=== PATIENT | female | born 1930 | race Asian ===

== ENCOUNTER 2018-11-27 10:30 | Inpatient (IN) | payer BC ==
[~2018-11-27] VITALS: Ht 175.3 cm; Wt 62.6 kg
[2018-11-27] MEDS ORDERED: IV NORMAL SALINE 500 ML BAG IV ONE (10:45)
--- NOTE | 2018-11-27 10:45 | NUR ---
No information about home medications provided by EMS, pt unable to provide information.
--- NOTE | 2018-11-27 11:03 | NUR ---
PT IS IN ROOM #1B. DR BARAHONA EVALUATED THE PT.
[2018-11-27 11:20] LABS: BASOPHILS # (AUTO) 0.2 K/uL (0.0-8.0); BASOPHILS % (AUTO) 0.9 % (0.0-2.0); EOSINOPHILS # (AUTO) 0.1 K/uL (0.0-0.7); EOSINOPHILS % (AUTO) 0.5 % (0.0-7.0); HEMATOCRIT 48.4 % (31.2-41.9); HEMOGLOBIN 15.3 g/dL (10.9-14.3); LYMPHOCYTES # (AUTO) 1.9 K/uL (20.0-40.0); MEAN CORPUSCULAR HEMOGLOBIN 26.9 uug (24.7-32.8); MEAN CORPUSCULAR HGB CONC 32 g/dL (32.3-35.6); MONOCYTES # (AUTO) 0.6 K/uL (2.0-10.0); NEUTROPHILS % (AUTO) 86.6 % (38.5-71.5); PLATELET COUNT (AUTO) 203 K/uL (179-408); RED BLOOD CELL COUNT(AUTO) 5.69 MIL/uL (3.63-4.92); WHITE BLOOD COUNT (AUTO) 20.8 K/uL (3.8-11.8)
[2018-11-27 11:29] LABS: CARBON DIOXIDE 23 mmol/L (21-32); CHLORIDE 104 mmol/L (98-107); CREATININE 1.2 mg/dL (0.6-1.3); GLUCOSE 156 mg/dL (74-106); POTASSIUM 4.8 mmol/L (3.5-5.1); UREA NITROGEN, BLOOD 31 mg/dL (7-18)
[2018-11-27 11:34] LABS: ALANINE AMINOTRANSFERASE 22 U/L (14-59); ALKALINE PHOSPHATASE 105 U/L (50-136); ASPARTATE AMINOTRANSFERASE 31 U/L (15-37); BILIRUBIN,DIRECT 0.1 mg/dL (0.0-0.2); BILIRUBIN,TOTAL 0.8 mg/dL (0.2-1.0); TOTAL PROTEIN, SERUM 7.3 g/dL (6.4-8.2)
[2018-11-27] MEDS ORDERED: IV NORMAL SALINE 1000 ML BAG IV ONE (11:45)
[2018-11-27] MEDS ORDERED: BENZ200C53 PO (11:58)
[2018-11-27] MEDS ORDERED: ASPI81TA31 PO (11:58)
[2018-11-27] MEDS ORDERED: SIMV20TA6 PO (11:59)
[2018-11-27] MEDS ORDERED: EXELON PO (11:59)
[2018-11-27] MEDS ORDERED: CHOL10002 PO (11:59)
[2018-11-27] MEDS ORDERED: ESCI5TAB PO (11:59)
[2018-11-27] MEDS ORDERED: DEXT1CAP3 PO (11:59)
[2018-11-27] MEDS ORDERED: VANCOMYCIN IV 1,000 MG in IV DEXTROSE 5% 250 ML IV ONE (12:15)
[2018-11-27] MEDS ORDERED: PIPERACILLIN SODIUM/TAZOBACTAM 3.375 G in IV DEXTROSE 5% 50 ML IV ONE (12:15)
[2018-11-27] MEDS ORDERED: PIPERACILLIN/TAZOBACTAM/D5W 50 ML IV ONE (12:19)
[2018-11-27 12:38] LABS: *BILIRUBIN,URIN NEGATIVE (NEGATIVE); *CLARITY,URINE SLIGHTLY CLOUDY (CLEAR); *COLOR,URINE DARK YELLOW (YELLOW); *KETONES,URINE NEGATIVE (NEGATIVE); *UROBILINOGEN,URINE 0.2 E.U./dl (NORMAL); LEUKOCYTE ESTERASE ,URINE NEGATIVE (NEGATIVE); NITRITE, URINE NEGATIVE (NEGATIVE); UGLUCOSE NEGATIVE (NEGATIVE)
[2018-11-27 12:44] LABS: *BLOOD, URINE TRACE INTACT (NEGATIVE)
[2018-11-27 12:48] LABS: MUCUS,URINE MODERATE /LPF (0-FEW); SQUAMOUS EPITHELIAL CELL,UR FEW /HPF (NONE SEEN)
[2018-11-27 12:50] LABS: BACTERIA,URINE FEW /HPF (NONE SEEN); WBC,URINE 0-3 /HPF (0-3)
[2018-11-27] MEDS ORDERED: VANCOMYCIN IV 200 ML ONE (12:53)
--- NOTE | 2018-11-27 13:00 | NUR ---
report was given to creative intern. pt was transfered to room #315.
[2018-11-27] MEDS ORDERED: DOXY100C53 PO (14:29)
[2018-11-27] MEDS ORDERED: MORPHINE SULFATE 2 MG/1 ML DISP.SYRIN IV PRN (15:45)
[2018-11-27] MEDS ORDERED: ONDANSETRON 4 MG/2 ML VIAL IV PRN (15:45)
[2018-11-27] MEDS ORDERED: ACETAMINOPHEN 325 MG TABLET PO PRN (15:45)
[2018-11-27] MEDS ORDERED: methylPREDNISolone SOD SUCC 40 MG/ML VIAL IV ONE (16:28)
[2018-11-27] MEDS: FAMOTIDINE. 20 MG/2 ML VIAL IV SCH (18:27)
[2018-11-27 18:44] VITALS: BP 128/41
[2018-11-27] MEDS: diphenhydrAMINE 50 MG/1 ML VIAL IV PRN (19:45)
--- NOTE | 2018-11-27 20:00 | NUR ---
Received patient laying in bed with daughter at bedside. No acute distress noted. A/O to self only. Seen grabbing things from thin air. In room air IV infusing in the left AC, patent and intact. Noted redness on the face, chest, left flank and back. MD aware. Benadryl 25 mg. given. TELE SR at 70. Safety initiated. Call light within reach. Bed alarm on. Will continue to monitor.
[2018-11-27 20:50] VITALS: BP 123/40
[2018-11-27] MEDS: DOCUSATE SODIUM 100 MG CAPSULE PO SCH (21:00)
[2018-11-27] MEDS: SIMVASTATIN 20 MG TABLET PO SCH (21:00)
--- NOTE | 2018-11-27 21:00 | NUR ---
2100 medication Colace and Atorvastatin held because patient is so confused. Somewhat drowsy and I am concern about aspiration. Will continue to monitor.
[2018-11-28 04:51] VITALS: BP 133/60
--- NOTE | 2018-11-28 05:37 | NUR ---
Patient slept t/o shift. No acute distress noted. Patient remains A/O x 2 but periods of confusion. As of this morning, patient is calm and cooperative. When asked about her sleep, patient states "I had a good sleep". No behavioral issues. IV heplock on the left AC remains patent and intact. TELE SR at 62. In room air. Vital signs stable. Good urine output. All meds given as ordered. All needs met. All safety and comfort measures maintained t/o shift.
[2018-11-28 06:41] LABS: BASOPHILS % (AUTO) 0.2 % (0.0-2.0); HEMATOCRIT 38.7 % (31.2-41.9); HEMOGLOBIN 12.8 g/dL (10.9-14.3); LYMPHOCYTES # (AUTO) 0.8 K/uL (20.0-40.0); LYMPHOCYTES % (AUTO) 11.5 % (20.5-51.5); MEAN CORPUSCULAR HEMOGLOBIN 27.6 uug (24.7-32.8); MEAN CORPUSCULAR HGB CONC 33 g/dL (32.3-35.6); MEAN CORPUSCULAR VOLUME 83.5 fL (75.5-95.3); MONOCYTES # (AUTO) 0.1 K/uL (2.0-10.0); MONOCYTES % (AUTO) 1.1 % (0.0-11.0); NEUTROPHILS # (AUTO) 6.3 K/uL (1.8-8.9); NEUTROPHILS % (AUTO) 87.2 % (38.5-71.5); PLATELET COUNT (AUTO) 208 K/uL (179-408); RED BLOOD CELL COUNT(AUTO) 4.63 MIL/uL (3.63-4.92); WHITE BLOOD COUNT (AUTO) 7.2 K/uL (3.8-11.8)
[2018-11-28] MEDS ORDERED: PANTOPRAZOLE SODIUM 40 MG TABLET.DR PO SCH (07:00)
[2018-11-28 07:05] LABS: ALANINE AMINOTRANSFERASE 18 U/L (14-59); ALKALINE PHOSPHATASE 78 U/L (50-136); ASPARTATE AMINOTRANSFERASE 14 U/L (15-37); BILIRUBIN,TOTAL 0.4 mg/dL (0.2-1.0); CARBON DIOXIDE 25 mmol/L (21-32); CHLORIDE 108 mmol/L (98-107); CHOLESTEROL 152 mg/dL (<200); CREATININE 0.7 mg/dL (0.6-1.3); GLUCOSE 121 mg/dL (74-106); HDL CHOLESTEROL 58 mg/dL (40-60); MAGNESIUM 2.1 mg/dL (1.8-2.4); PHOSPHOROUS 3.2 mg/dL (2.5-4.9); POTASSIUM 4.2 mmol/L (3.5-5.1); TOTAL PROTEIN, SERUM 5.8 g/dL (6.4-8.2); TRIGLYCERIDES 69 MG/DL (30-150); UREA NITROGEN, BLOOD 21 mg/dL (7-18)
[2018-11-28 07:11] LABS: THYROID STIMULATING HORMONE 0.811 mIU/mL (0.358-3.740)
[2018-11-28 07:50] LABS: IRON, SERUM 49 ug/dL (50-175)
[2018-11-28] MEDS: FAMOTIDINE. 20 MG/2 ML VIAL IV SCH (08:49)
[2018-11-28] MEDS: ESCITALOPRAM OXALATE 10 MG TABLET PO SCH (08:49)
[2018-11-28] MEDS: ASPIRIN 81 MG TAB.CHEW PO SCH (08:49)
[2018-11-28] MEDS ORDERED: Medication Not On Formulary EA (Escitalopram Oxalate (Lexapro) 5 MG) PO SCH (09:00)
[2018-11-28] MEDS: diphenhydrAMINE 50 MG/1 ML VIAL IV PRN (09:51)
[2018-11-28 11:36] VITALS: BP 106/38
[2018-11-28 15:00] VITALS: BP 114/39
[2018-11-28] MEDS: LORAZEPAM 2 MG/1 ML VIAL IV PRN (16:48)
[2018-11-28] MEDS: RIVASTIGMINE TARTRATE 3 MG CAPSULE PO SCH (16:48)
--- NOTE | 2018-11-28 17:34 | NUR ---
Patient is oriented to self, No acute distress or SOB. Patient becomes aggressive and fights, tries to pull out iv multiple times. IV heplock on the Right wrist remains patent and intact. TELE SR at 62. In room air. Vital signs stable. Good urine output. All meds given as ordered. All needs met. All safety and comfort measures maintained t/o shift.
--- NOTE | 2018-11-28 19:30 | NUR ---
PATIENT RECEIVED LYING IN BED AND CONFUSED. NO SIGNS OF ACUTE DISTRESS. COMFORT MEASURES PROVIDED. BED IN LOWEST POSITION. SIDE RAILS X2.
[2018-11-28 20:41] VITALS: BP 120/40
[2018-11-28] MEDS: NUEDEXTA PO SCH (20:57)
[2018-11-28] MEDS: DOCUSATE SODIUM 100 MG CAPSULE PO SCH (20:57)
[2018-11-28] MEDS: FAMOTIDINE 20 MG TABLET PO SCH (20:57)
[2018-11-28] MEDS: SIMVASTATIN 20 MG TABLET PO SCH (20:57)
[2018-11-28] MEDS ORDERED: FAMOTIDINE. 20 MG/2 ML VIAL IV SCH (21:00)
--- NOTE | 2018-11-28 21:54 | NUR ---
PATIENT D/C TELEMETRY PER MD OWUSU
[2018-11-29] MEDS: diphenhydrAMINE 50 MG/1 ML VIAL IV PRN (00:16)
[2018-11-29] MEDS: LORAZEPAM 2 MG/1 ML VIAL IV PRN (02:03)
[2018-11-29 05:52] VITALS: BP 115/40
[2018-11-29 06:26] LABS: BASOPHILS % (AUTO) 0.2 % (0.0-2.0); EOSINOPHILS # (AUTO) 0.2 K/uL (0.0-0.7); EOSINOPHILS % (AUTO) 1.8 % (0.0-7.0); HEMATOCRIT 36.5 % (31.2-41.9); HEMOGLOBIN 11.9 g/dL (10.9-14.3); LYMPHOCYTES # (AUTO) 2.6 K/uL (20.0-40.0); LYMPHOCYTES % (AUTO) 26.7 % (20.5-51.5); MEAN CORPUSCULAR HEMOGLOBIN 27.4 uug (24.7-32.8); MEAN CORPUSCULAR HGB CONC 33 g/dL (32.3-35.6); MEAN CORPUSCULAR VOLUME 83.8 fL (75.5-95.3); MONOCYTES # (AUTO) 0.6 K/uL (2.0-10.0); MONOCYTES % (AUTO) 5.6 % (0.0-11.0); NEUTROPHILS # (AUTO) 6.5 K/uL (1.8-8.9); NEUTROPHILS % (AUTO) 65.7 % (38.5-71.5); PLATELET COUNT (AUTO) 168 K/uL (179-408); RED BLOOD CELL COUNT(AUTO) 4.35 MIL/uL (3.63-4.92); WHITE BLOOD COUNT (AUTO) 9.9 K/uL (3.8-11.8)
[2018-11-29 06:51] LABS: CARBON DIOXIDE 27 mmol/L (21-32); CHLORIDE 108 mmol/L (98-107); CREATININE 0.8 mg/dL (0.6-1.3); GLUCOSE 81 mg/dL (74-106); PHOSPHOROUS 2.5 mg/dL (2.5-4.9); POTASSIUM 3.8 mmol/L (3.5-5.1); UREA NITROGEN, BLOOD 23 mg/dL (7-18)
--- NOTE | 2018-11-29 07:31 | NUR ---
PATIENT INTERMITTENTLY SLEEPING AND CONFUSED. MEDICATION PROVIDED FOR ITCHING. NO SIGNS OF ACUTE DISTRESS OR PAIN. BED IN LOWEST POSITION. SIDE RAIL X2. ATIVAN GIVEN IV FOR AGITATION.
--- NOTE | 2018-11-29 07:53 | NUR ---
Still sleepy, refused VS. 1:1 sitter at bedside
--- NOTE | 2018-11-29 09:00 | NUR ---
Patient still drowsy, not fully awake. Breakfast and Medication not given at this time
[2018-11-29 12:18] VITALS: BP 131/92
--- NOTE | 2018-11-29 13:00 | NUR ---
Patient awake, able to participate with swallow eval, lunch given and medication
[2018-11-29] MEDS ORDERED: MEMA10TA PO (13:17)
[2018-11-29] MEDS: ASPIRIN 81 MG TAB.CHEW PO SCH (13:19)
[2018-11-29] MEDS: FAMOTIDINE 20 MG TABLET PO SCH (13:21)
[2018-11-29] MEDS: RIVASTIGMINE TARTRATE 3 MG CAPSULE PO SCH (13:21)
[2018-11-29] MEDS: ESCITALOPRAM OXALATE 10 MG TABLET PO SCH (13:21)
[2018-11-29] MEDS: NUEDEXTA PO SCH (13:21)
[2018-11-29] MEDS ORDERED: FAMO20TA8 PO (13:44)
--- NOTE | 2018-11-29 14:56 | NUR ---
With discharge order to home. Saline lock removed. New prescription OTC education given by Pharmacist. DC instructions given to spouse and caregiver, verbalized understanding. Went home per wheelchair in fair condition, not in distress, afebrile.
== END 2018-11-29 14:55 | disposition home or self-care (01) | DRG 640 ==
LOC: ER 10:30 → TELE3 12:43 → MEDSURG3 11-28 21:35
PROVIDERS: ADMIT Internal Medicine; ATTEND Internal Medicine
DX: E86.0 Dehydration (principal); N17.0 Acute kidney failure with tubular necrosis; F05 Delirium due to known physiological condition; D68.59 Other primary thrombophilia; E27.49 Other adrenocortical insufficiency; E87.2 Acidosis; J01.30 Acute sphenoidal sinusitis, unspecified; L27.0 Generalized skin eruption due to drugs and medicaments taken internally; T36.4X5A Adverse effect of tetracyclines, initial encounter; Y92.019 Unspecified place in single-family (private) house as the place of occurrence of the external cause; M35.3 Polymyalgia rheumatica; M81.0 Age-related osteoporosis without current pathological fracture; M19.90 Unspecified osteoarthritis, unspecified site; N32.81 Overactive bladder; R32 Unspecified urinary incontinence; F01.50 Vascular dementia, unspecified severity, without behavioral disturbance, psychotic disturbance, mood disturbance, and anxiety; E78.5 Hyperlipidemia, unspecified; Z79.899 Other long term (current) drug therapy; I25.10 Atherosclerotic heart disease of native coronary artery without angina pectoris; R94.31 Abnormal electrocardiogram [ECG] [EKG]; Z79.82 Long term (current) use of aspirin; Z86.73 Personal history of transient ischemic attack (TIA), and cerebral infarction without residual deficits; R73.9 Hyperglycemia, unspecified; Z74.09 Other reduced mobility; I70.0 Atherosclerosis of aorta
CPT/HCPCS: 36415; 70030-TC; 70450; 71045; 71250; 83550; 83605; 83735; 84100; 84443; 85025; 87086; 87400; 92526; 92610; 93005; 97116; 97530; A4663; G0378; J1200; J2060; J2270; J2543; J2920; J3370; J3490; J7030

== ENCOUNTER 2019-09-13 14:04 | Emergency (ER) | payer BC ==
[~2019-09-13] VITALS: Ht 162.6 cm; Wt 64.0 kg
--- NOTE | 2019-09-13 14:09 | NUR ---
PT IS A/OX1, BIB RA99 FROM PRIVATE RESIDENCE, C/O HYPOTENSION AND POSSIBLE SYNCOPAL EPISODE. PER [employer] CONSULTANT'S REPORT, PT'S SPOUSE STATED PT'S BP USUALLY "GOES LOW" WHEN SHE HAS A BM. 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 PT IS CURRENTLY AWAKE, BASELINE A/O STATUS X2, GCS 14. VSS. PT DOES NOT APPEAR TO BE IN ANY APPARENT DISTRESS AT THIS TIME.
--- NOTE | 2019-09-13 14:21 | NUR ---
PT'S SPOUSE AND CAREGIVER AT BEDSIDE. PER CAREGIVER'S REPORT, PT DID NOT LOSE CONSCIOUSNESS. PT SIMPLY LEANED BACK AND HAD A NEAR SYNCOPAL EPISODE.
[2019-09-13 14:27] LABS: BASOPHILS # (AUTO) 0.1 K/uL (0.0-8.0); BASOPHILS % (AUTO) 0.6 % (0.0-2.0); EOSINOPHILS # (AUTO) 0.2 K/uL (0.0-0.7); EOSINOPHILS % (AUTO) 2.4 % (0.0-7.0); HEMATOCRIT 39.6 % (31.2-41.9); HEMOGLOBIN 12.7 g/dL (10.9-14.3); LYMPHOCYTES # (AUTO) 1.9 K/uL (20.0-40.0); LYMPHOCYTES % (AUTO) 19.1 % (20.5-51.5); MEAN CORPUSCULAR HEMOGLOBIN 26.9 uug (24.7-32.8); MEAN CORPUSCULAR HGB CONC 32 g/dL (32.3-35.6); MEAN CORPUSCULAR VOLUME 84.1 fL (75.5-95.3); MONOCYTES # (AUTO) 0.5 K/uL (2.0-10.0); MONOCYTES % (AUTO) 4.4 % (0.0-11.0); NEUTROPHILS # (AUTO) 7.5 K/uL (1.8-8.9); NEUTROPHILS % (AUTO) 73.5 % (38.5-71.5); PLATELET COUNT (AUTO) 219 K/uL (179-408); RED BLOOD CELL COUNT(AUTO) 4.71 MIL/uL (3.63-4.92); WHITE BLOOD COUNT (AUTO) 10.2 K/uL (3.8-11.8)
[2019-09-13 14:41] LABS: BILIRUBIN,DIRECT 0.1 mg/dL (0.0-0.2); BILIRUBIN,TOTAL 0.3 mg/dL (0.2-1.0); CREATININE 0.7 mg/dL (0.6-1.3); POTASSIUM 3.8 mmol/L (3.5-5.1); TOTAL PROTEIN, SERUM 6.8 g/dL (6.4-8.2)
--- NOTE | 2019-09-13 15:46 | NUR ---
Ruby-care provided. pt warm and dry.
[2019-09-13 16:33] LABS: *BILIRUBIN,URIN NEGATIVE (NEGATIVE); *BLOOD, URINE NEGATIVE (NEGATIVE); *CLARITY,URINE SLIGHTLY CLOUDY (CLEAR); *COLOR,URINE YELLOW (YELLOW); *KETONES,URINE NEGATIVE (NEGATIVE); *UROBILINOGEN,URINE 0.2 E.U./dl (NORMAL); LEUKOCYTE ESTERASE ,URINE 1+ (NEGATIVE); NITRITE, URINE POSITIVE (NEGATIVE); UGLUCOSE NEGATIVE (NEGATIVE)
[2019-09-13 16:44] LABS: BACTERIA,URINE MANY /HPF (NONE SEEN); MUCUS,URINE MODERATE /LPF (0-FEW); RBC,URINE 0-3 /HPF (0-3); SQUAMOUS EPITHELIAL CELL,UR MODERATE /HPF (NONE SEEN); WBC,URINE 80-100 /HPF (0-3)
--- NOTE | 2019-09-13 17:17 | NUR ---
Patient discharged to home in stable conditon. Written and verbal after care instructions given. Patient verbalizes understanding of instructions. all belongings w/ pt. pt assisted to private vehicle in wheelchair. vss. 18g iv access in r wrist removed prior to d/c - inner cannula intact.
[2019-09-13 17:18] VITALS: BP 133/61
== END 2019-09-13 17:19 | disposition home or self-care (01) ==
LOC: ER 14:04
DX: N39.0 Urinary tract infection, site not specified (principal); K52.89 Other specified noninfective gastroenteritis and colitis; R79.89 Other specified abnormal findings of blood chemistry; R55 Syncope and collapse; R74.8 Abnormal levels of other serum enzymes; Z79.82 Long term (current) use of aspirin; Z79.899 Other long term (current) drug therapy
CPT/HCPCS: 36415; 70030-TC; 71045; 83690; 85025; 87077; 87086; 93005; A4663